=== PATIENT | female | born 1940 | race Caucasian/White ===

== ENCOUNTER 2017-03-17 05:04 | Emergency (ER) | payer OTHER ==
[~2017-03-17] VITALS: Ht 170.2 cm; Wt 82.0 kg
[~2017-03-17 05:04] MED LIST: ACTOS30 MG PO; ALDACTONE100 MG PO; Antivert PO; COUMADIN,JANTOVE1 MG PO; CYMBALTA30 MG PO; Claritin,Alavart PO; Colace PO; D-VERT25 MG PO; DULCOLAX10 MG PR; DYNAPEN 250 MG250 MG PO; EFFEXOR XR150 MG PO; ENDOCET 5-3251 EACH PO; Feosol PO; Flonase BOTH NARES; GLUCOPHAGE500 MG PO; Glucophage PO; JANUVIA100 MG PO; KEFLEX500 MG PO; Klonopin PO; LANTUS 3 M100 UNITS/ SC; LOW-DOSE ASPIRI81 MG PO; LYRICA75 MG PO; NEURONTIN300 MG PO; NOVOLOG PE100 UNITS/ SC; Neurontin PO; SENOKOT S,PE1 TABLET PO; TRICOR145 MG PO; TRILIPIX135 MG PO; Tessalon Perle PO; Tylenol Regular Stre PO; WELCHOL625 MG PO; Xarelto PO
[2017-03-17 06:59] LABS: MCH 30.8 PG (29.0-34.0); MCHC 34.5 G/DL (30.0-36.0); MCV 89.3 FL (83-99); MEAN PLAT.VOLUME 11.4 uM^3 (9.5-12.4); PLATELET COUNT 153 K/uL (156-360); RBC DIS.WIDTH-SD 42.6 % (39-53); RED BLOOD COUNT 4.48 M/uL (3.80-5.20); WHITE BLOOD COUNT 8.7 K/uL (4.1-10.2)
[2017-03-17 07:25] LABS: ANION GAP 9 MEQ/L (2-14); CHLORIDE 101 MEQ/L (99-109); MAGNESIUM 1.8 mg/dl (1.3-2.7); POTASSIUM 3.5 MEQ/L (3.7-5.4); SAMPLE HEMOLYSIS CHECK 0; SAMPLE ICTERIC CHECK 0; SAMPLE LIPEMIA CHECK 0; SODIUM 132 MEQ/L (136-147); TOTAL BILIRUBIN 0.9 MG/DL (0.0-1.0)
[2017-03-17 07:31] LABS: ALKALINE PHOSPHATASE 86 IU/L (3-129); GFR ESTIMATE (CALCULATED) 51 mL/min/; GLUCOSE 390 mg/dL (70-99); UREA NITROGEN (BUN) 28 mg/dL (9-23)
[2017-03-17] MEDS ORDERED: PERCOCET 5/31 TABLET PO (11:28)
[2017-03-17] MEDS ORDERED: FLEXERIL10 MG PO (11:28)
[2017-03-17 11:46] VITALS: BP 131/70
== END 2017-03-17 12:08 | disposition home or self-care (01) ==
LOC: EME 05:04
PROVIDERS: Emergency Medicine
DX: M25.551 Pain in right hip (principal); M54.9 Dorsalgia, unspecified; G89.29 Other chronic pain; M62.838 Other muscle spasm; M51.36 Other intervertebral disc degeneration, lumbar region; E11.9 Type 2 diabetes mellitus without complications; Z79.4 Long term (current) use of insulin; Z79.01 Long term (current) use of anticoagulants; Z98.1 Arthrodesis status
CPT/HCPCS: 72100; 73501; 80053; 83735; 84100; 85027; 99281; 99285; G8978 GP CM; G8979 CJ; G8980 GP CM; G8987 GO CM; G8988 GO CJ; G8989 GO CM; J2270